=== PATIENT | female | born 1950 | race American Indian/Alaskan Native ===

== ENCOUNTER 2016-08-20 18:10 | Outpatient (CLI) | payer MEDICARE ==
[2016-08-20 18:36] LABS: Basophils % (Auto) 0.6 % (0.0-1.8); Eosinophils % (Auto) 2.2 % (0.0-4.3); Hematocrit 39.3 % (30.3-42.9); Hemoglobin 12.5 gm/dl (10.1-14.3); Mean Corpuscular HGB Conc 32 % (30-34); Mean Corpuscular Hemoglobin 27 pg (28-32); Mean Corpuscular Volume 85 fl (79-97); Platelet Count 277 K/mm3 (140-440); Red Blood Count 4.61 M/mm3 (3.65-5.03); Red Cell Distribution Width 18.7 % (13.2-15.2); White Blood Count 6.8 K/mm3 (4.5-11.0)
[2016-08-20 18:49] LABS: Alanine Aminotransferase 9 units/L (7-56); Albumin 3.4 g/dL (3.9-5); Albumin/Globulin Ratio 0.8 %; Alkaline Phosphatase 73 units/L (35-129); Anion Gap 17 mmol/L; BUN/Creatinine Ratio 17.77; Bilirubin,Total 0.2 mg/dL (0.1-1.2); Blood Urea Nitrogen 16 mg/dL (7-17); Calcium 8.1 mg/dL (8.4-10.2); Carbon Dioxide 26 mmol/L (22-30); Chloride 100.5 mmol/L (98-107); Cholesterol 150 mg/dL (50-199); Glucose 95 mg/dL (65-100); HDL Cholesterol 47 mg/dL (40-59); LDL Cholesterol,Direct 88 mg/dL (50-130); Sodium 139 mmol/L (137-145); Total Protein 7.7 g/dL (6.3-8.2); Triglycerides 79 mg/dL (2-149)
[2016-08-20 18:50] LABS: INR 1.54 (0.87-1.13)
== END 2016-08-20 18:11 | disposition home or self-care (01) ==
LOC: LAB 18:10
PROVIDERS: ATTEND Hospitalist
DX: I48.91 Unspecified atrial fibrillation (principal); E78.4 Other hyperlipidemia
CPT/HCPCS: 36415; 80053; 80061; 85025; 85610

== ENCOUNTER 2016-11-25 16:33 | Outpatient (CLI) | payer MEDICARE ==
[2016-11-26 09:58] LABS: INR 1.78 (0.87-1.13)
== END 2016-11-25 16:34 | disposition home or self-care (01) ==
LOC: LAB 16:33
PROVIDERS: ATTEND Hospitalist
DX: I48.2 Chronic atrial fibrillation (principal)
CPT/HCPCS: 36415; 85610

== ENCOUNTER 2016-12-11 16:47 | Emergency (ER) | payer MEDICARE ==
[2016-12-11 19:13] LABS: Basophils % (Auto) 0.5 % (0.0-1.8); Eosinophils % (Auto) 1.7 % (0.0-4.3); Hematocrit 41.5 % (30.3-42.9); Hemoglobin 13.3 gm/dl (10.1-14.3); Mean Corpuscular HGB Conc 32 % (30-34); Mean Corpuscular Hemoglobin 27 pg (28-32); Mean Corpuscular Volume 84 fl (79-97); Platelet Count 282 K/mm3 (140-440); Red Blood Count 4.92 M/mm3 (3.65-5.03); Red Cell Distribution Width 19.2 % (13.2-15.2); White Blood Count 8.3 K/mm3 (4.5-11.0)
[2016-12-11 19:24] LABS: INR 2.98 (0.87-1.13); Partial Thromboplastin Time 45.7 Sec. (24.2-36.6)
[2016-12-11 19:35] LABS: Alanine Aminotransferase 11 units/L (7-56); Albumin 3.4 g/dL (3.9-5); Albumin/Globulin Ratio 0.8 %; Alkaline Phosphatase 82 units/L (35-129); Anion Gap 15 mmol/L; BUN/Creatinine Ratio 18.88; Bilirubin,Total 0.2 mg/dL (0.1-1.2); Blood Urea Nitrogen 17 mg/dL (7-17); Calcium 8.6 mg/dL (8.4-10.2); Carbon Dioxide 27 mmol/L (22-30); Chloride 101.8 mmol/L (98-107); Glucose 117 mg/dL (65-100); Lipase 21 units/L (13-60); Potassium 3.5 mmol/L (3.6-5.0); Sodium 140 mmol/L (137-145); Total Protein 7.5 g/dL (6.3-8.2)
[2016-12-11 21:52] LABS: Bilirubin,Urine NEG (Negative); Blood,Urine MOD (Negative); Ketones,Urine NEG (Negative); Leukocyte Esterase,Urine NEG (Negative); Mucus,Urine FEW /HPF; Nitrite,Urine NEG (Negative); Protein,Urine <15 mg/dL mg/dL (Negative); Urobilinogen,Urine < 2.0 mg/dL (<2.0); WBC,Urine < 1.0 /HPF (0.0-6.0)
[2016-12-12] MEDS ORDERED: APRESOLINE IV ONE (08:58)
[2016-12-12] MEDS ORDERED: TYLENOL PO ONE (09:26)
--- NOTE | 2016-12-12 09:27 | Emergency Department Report ---
ED General Adult HPI - General Chief complaint: Abdominal Pain Stated complaint: VAG BLEEDING Time Seen by Provider: 12/12/16 09:10 Source: patient Mode of arrival: Ambulatory Limitations: No Limitations - History of Present Illness Initial comments: This is a 66-year-old female. She is previously unknown to me. Her primary care doctor is Dr. Enamorado. She currently does not have a private greenskeeper. She has a past medical history of hypertension, and atrial fibrillation (does not know if it is paroxysmal). The patient is sent to the ER by her primary care doctor for evaluation of vaginal bleeding. The patient denies headache, neck pain, chest pain, shortness of breath, hematemesis, bright red blood per rectum. The patient has left lower quadrant aching discomfort, with intermittent vaginal bleeding. The patient denies irritative and obstructive urinary symptoms, reports compliance with her Coumadin therapy, and is not recently sexually active. The abdominal pain does not radiate anywhere, and has no exacerbating or relieving factors. -: Gradual Location: abdomen Severity scale (0 -10): 3 Quality: aching Consistency: intermittent Improves with: none Worsens with: none Associated Symptoms: denies: confusion, chest pain, cough, diaphoresis, headaches, loss of appetite, malaise, nausea/vomiting, rash, seizure, shortness of breath, syncope, weakness - Related Data Home Medications Medication Instructions Recorded Confirmed Last Taken AtorvaSTATin [Lipitor] 20 mg PO QHS 12/12/16 12/12/16 12/10/16 Lisinopril/Hydrochlorothiazide 1 tab PO QDAY 12/12/16 12/12/16 Unknown [Zestoretic 20-12.5 mg] Metoprolol [Lopressor TAB] 50 mg PO BID 12/12/16 12/12/16 Unknown Warfarin [Coumadin] 5 mg PO QDAY 12/12/16 12/12/16 12/10/16 Allergies Allergy/AdvReac Type Severity Reaction Status Date / Time tetracycline Allergy Hives Unverified 08/20/16 18:11 ED Review of Systems ROS: Stated complaint: VAG BLEEDING Other details as noted in HPI ED Past Medical Hx - Past Medical History Previous Medical History?: Yes Additional medical history: Obesity - Surgical History Past Surgical History?: No - Social History Smoking Status: Never Smoker Substance Use Type: None - Medications Home Medications: Home Medications Medication Instructions Recorded Confirmed Last Taken Type AtorvaSTATin [Lipitor] 20 mg PO QHS 12/12/16 12/12/16 12/10/16 History Lisinopril/Hydrochlorothiazide 1 tab PO QDAY 12/12/16 12/12/16 Unknown History [Zestoretic 20-12.5 mg] Metoprolol [Lopressor TAB] 50 mg PO BID 12/12/16 12/12/16 Unknown History Warfarin [Coumadin] 5 mg PO QDAY 12/12/16 12/12/16 12/10/16 History ED Physical Exam - General Limitations: No Limitations General appearance: in no apparent distress, anxious, obese - Head Head exam: Present: atraumatic, normocephalic - Eye Eye exam: Present: normal appearance, EOMI. Absent: nystagmus - ENT ENT exam: Present: normal exam, normal orophraynx, mucous membranes moist, normal external ear exam - Neck Neck exam: Present: normal inspection, full ROM. Absent: tenderness, meningismus - Respiratory Respiratory exam: Present: normal lung sounds bilaterally. Absent: respiratory distress, wheezes, rales, rhonchi, stridor, chest wall tenderness, accessory muscle use, decreased breath sounds, prolonged expiratory - Cardiovascular Cardiovascular Exam: Present: regular rate, normal rhythm, systolic murmur (2/6 SYSTOLIC murmur). Absent: bradycardia, tachycardia, irregular rhythm, diastolic murmur, rubs, gallop - GI/Abdominal GI/Abdominal exam: Present: soft, normal bowel sounds. Absent: distended, tenderness, guarding, rebound, rigid, pulsatile mass - External exam: Present: normal external exam Speculum exam: Present: vaginal bleeding Bi-manual exam: Present: normal bi-manual exam, other (escorted by TOMMIE RIVAS. Scant vaginal bleeding noted through the uterus, otherwise there is no vaginal bleeding within the vault.). Absent: cervical motion tendernes, adnexal tenderness, adnexal mass - Extremities Exam Extremities exam: Present: normal inspection, full ROM, normal capillary refill. Absent: tenderness, pedal edema, joint swelling, calf tenderness - Back Exam Back exam: Present: normal inspection, full ROM. Absent: tenderness, CVA tenderness (R), CVA tenderness (L), muscle spasm, paraspinal tenderness, vertebral tenderness - Neurological Exam Neurological exam: Present: alert, oriented X3, normal gait, other (Extraocular movements intact. Tongue midline. No facial droop. Facial sensation intact to light touch in the V1, V2, V3 distribution bilaterally. 5 and 5 strength in 4 extremities.. Sensation is intact to light touch in 4 extremities.). Absent : motor sensory deficit - Psychiatric Psychiatric exam: Present: anxious - Skin Skin exam: Present: warm, dry, intact, normal color. Absent: rash ED Course Vital Signs 12/11/16 12/12/16 12/12/16 18:40 02:46 06:17 Temperature 98.2 F 98.7 F Pulse Rate 86 89 87 Respiratory 18 20 18 Rate Blood Pressure 98/58 Blood Pressure 191/91 [Left] O2 Sat by Pulse 97 96 98 Oximetry 12/12/16 12/12/16 12/12/16 06:18 07:49 07:51 Temperature Pulse Rate Respiratory 18 Rate Blood Pressure 200/119 200/119 Blood Pressure [Left] O2 Sat by Pulse 98 94 95 Oximetry 12/12/16 12/12/16 12/12/16 08:01 08:11 08:21 Temperature Pulse Rate Respiratory Rate Blood Pressure 200/119 200/119 200/119 Blood Pressure [Left] O2 Sat by Pulse 95 95 96 Oximetry 12/12/16 12/12/16 08:31 09:09 Temperature Pulse Rate 92 H Respiratory Rate Blood Pressure 200/119 215/139 Blood Pressure [Left] O2 Sat by Pulse 95 Oximetry - Reevaluation(s) Reevaluation #1: 12/12/16 10:52 Differential diagnosis: Coumadin toxicity, endometriosis, endometrial cancer, uterine malignancy, fibroids, asymptomatic elevated blood pressure, chronic A. fib now resolved, retroperitoneal hematoma Assessment and plan: 66-year-old female with cramping and vaginal bleeding, currently on Coumadin therapy. She is afebrile and initially hypertensive secondary to not taking her medications. She is markedly anxious. She has a GCS of 15, with an NIH score of 0. Her abdomen is soft and benign with no rebound, guarding or peritoneal signs. There is no pulsatile abdominal mass. Her gynecologic examination demonstrates scant blood through the uterine os. INR is therapeutic. She is clinically normal sinus, with an EKG that collaboration with sinus rhythm. A noncontrast CT scan of the abdomen and pelvis demonstrated fibroids, otherwise no acute disease. Patient's heart rate is 103-106 bpm at this time, there is a markedly anxiety component. Blood pressure was initially hypertensive, improved with hydralazine, currently in the 160s. I have contacted cardiology, and arrange patient to have follow-up with a local greenskeeper, Dr. Hsu, on December 17, at 2:30 PM. The patient is to follow-up with the [place] office. Given that we do not know if the patient is in paroxysmal A. fib, we will continue her on Coumadin therapy until cardiology discontinue use or makes a decision to continue. The patient is also instructed to follow up with outpatient obstetrics to follow -up for vaginal bleeding and to rule out endometrial cancer. ED Medical Decision Making - Lab Data Result diagrams: 12/11/16 19:02 12/11/16 19:02 - EKG Data -: EKG Interpreted by Me Rate: tachycardia - EKG Data 12/12/16 10:55 Sinus tachycardia, borderline left axis deviation, poor R-wave progression, abnormal EKG, morphologically consistent with STEMI, premature ventricular contractions noted, there is no prior EKG available for comparison. - Radiology Data Radiology results: report reviewed, image reviewed interpreted by me: Noncontrast CT scan of the abdomen and pelvis negative for acute disease, no acute process is noted. The aorta is within normal limits. The appendix is not identified, but I do not have any clinical suspicion for appendicitis at this time. Critical care attestation.: If time is entered above; I have spent that time in minutes in the direct care of this critically ill patient, excluding procedure time. ED Disposition Clinical Impression: Vaginal bleeding, Elevated blood pressure, History of atrial fibrillation Disposition: DISCHARGED TO HOME OR SELFCARE Is pt being admited?: No Does the pt Need Aspirin: No Condition: Stable Additional Instructions: Continue current outpatient medications. It is very important to continue blood pressure medications and to have this followed up by either a primary care doctor or greenskeeper. Blood pressure was elevated in the emergency room , and she'll be further managed as recommended. Follow up with the greenskeeper on December 17 at 2:30 PM, and the [place] office. You have an appointment with the greenskeeper, Dr. Hsu, on December 17, 2:30 PM, at the [place] office. Continue Coumadin therapy unless the greenskeeper or primary care doctor instructed you to discontinue it. In addition, follow up with any of the listed gynecology groups for further evaluation and management of vaginal bleeding. Symptoms most likely coming from uterine fibroids and Coumadin therapy, but it is very important to follow- up with gynecology to exclude cancer/tumor/malignancy. Return to the ER right away with new pain, worsened pain, migration of pain, fevers or chills, intractable nausea or vomiting, inability to tolerate feeds. Referrals: PRIMARY CAREMD [Primary Care Provider] - 3-5 Days SHIRA HSU MD [Staff Physician] - 3-5 Days [facility] [Provider Group] - 3-5 Days [facility] [Provider Group] - 3-5 Days [facility] [Provider Group] - 3-5 Days
--- NOTE | 2016-12-12 10:12 | Cat Scan Report ---
CT OF THE ABDOMEN AND PELVIS WITHOUT CONTRAST HISTORY: Abdominal pain, vaginal bleeding, cramping. TECHNIQUE: Helical CT without contrast. Sagittal and coronal reformatted images. FINDINGS: Within the limits of a noncontrast exam, the abdominal viscera are within normal limits. The liver, biliary system, pancreas, spleen, kidneys, adrenal glands and bladder are unremarkable. The bowel loops are normal caliber and wall thickness. The appendix is not confidently identified. The aorta is normal caliber. No ascites, bulky adenopathy or inflammatory changes. The uterus is mildly enlarged and lobular suggesting fibroid disease. No adnexal cyst or mass. The lung bases are clear. Normal heart size. No suspicious bony lesion. IMPRESSION: No acute process is appreciated. Uterine fibroid disease.
[2016-12-12] MEDS ORDERED: NACL 0.9% 500 ML 500 ML IV ONE (10:20)
[2016-12-12 12:29] VITALS: BP 168/92
== END 2016-12-12 12:15 | disposition home or self-care (01) ==
LOC: ED 16:47
DX: N93.9 Abnormal uterine and vaginal bleeding, unspecified (principal); I48.91 Unspecified atrial fibrillation; R03.0 Elevated blood-pressure reading, without diagnosis of hypertension
CPT/HCPCS: 36415; 74176; 80053; 81001; 83690; 85025; 85610; 85730; 93005; 93010; 96361; 96374; 99285; J0360; J7040